=== PATIENT | male | born 1970 | race Caucasian/White ===

== ENCOUNTER → 2017-08-25 | Outpatient (CLI) | payer OTHER ==
[~2017-08-25] MED LIST: ATEN50 PO; RXTRAM50 PO; TRAZ50 PO; Tenormin50 MG PO
== END | disposition home or self-care (01) ==
LOC: LAB 16:05 → LAB SHORT 16:05
DX: N39.0 Urinary tract infection, site not specified (principal)
CPT/HCPCS: 87086